=== PATIENT | female | born 1955 | race Caucasian/White ===

== ENCOUNTER 2017-10-15 08:10 | Emergency (ER) | payer BC ==
[2017-10-15] MEDS: METHOCARBAMOL 500 MG TAB PO (09:14)
[2017-10-15] MEDS: PERCOCET 5MG/325MG TAB PO (09:14)
== END 2017-10-15 09:32 | disposition home or self-care (01) ==
LOC: M ED 08:10
DX: M54.16 Radiculopathy, lumbar region (principal); M54.42 Lumbago with sciatica, left side; G89.29 Other chronic pain; M25.561 Pain in right knee; Z87.891 Personal history of nicotine dependence; Z79.899 Other long term (current) drug therapy
CPT/HCPCS: 99283

== ENCOUNTER → 2020-02-26 | Outpatient (CLI) | payer SELFPAY ==
[~2020-02-26] MED LIST: CYCL-707 PO; IBUP-1022 PO; IBUP80TA PO; PERC5TAB12 PO; ROBA500T PO; SIMV20TA22 PO
== END ==
LOC: M LABSMTC 10:22
PROVIDERS: ATTEND Pediatrics
DX: Z20.828 Contact with and (suspected) exposure to other viral communicable diseases (principal)

== ENCOUNTER → 2020-04-21 | Outpatient (CLI) | payer SELFPAY | LOC: M LABSMTC 11:13 | PROVIDERS: ATTEND Pediatrics | DX: Z11.52 Encounter for screening for COVID-19 (principal) ==